=== PATIENT | male | born 1975 | race Asian ===

== ENCOUNTER 2016-07-30 10:11 | Emergency (ER) | payer OTHER ==
[2016-07-30 10:35] VITALS: BP 108/86; PULSE 112; RESP 14; TEMP 100; O2SAT 96
[2016-07-30] MEDS ORDERED: IBUPROFEN 200 MG TAB PO ONE ×2 (10:38→10:40)
--- NOTE | 2016-07-30 10:43 | UCPHY ---
H & P Patient Type: New Chief Complaint Nursing Narrative: sore throat for 3 days Time Seen by Provider: 07/30/16 10:30 HPI/ROS: Chief complaint: Sore throat, fevers, chills HPI: Patient presenting with 3-4 days of sore throat, fevers, chills, some throat clearing. Denies any pain or difficulty swallowing. No headache. No sinus congestion. No body aches. No cough. No shortness of breath. He has been taking DayQuil NyQuil with minimal relief. He states that many people at work have had similar symptoms. Denies past medical history. No medications. No allergies. ROS: 10 point Review of Systems is negative except as noted in the HPI. Physical exam: Gen: Awake, Alert, No Distress HEENT: Ears: Bilateral TMs are normal, no erythema or bulging. External auditory canals are clear. Nose: no rhinorrhea Eyes: PERRLA, EOMI Mouth: Moist mucosa mild pharyngeal erythema, no exudate, no edema, no petechia, Neck: Supple, no JVD, no lymphadenopathy Chest: nontender, lungs clear to auscultation Heart: S1, S2 normal, no murmur Abd: Soft, non-tender, no guarding Back: no CVA tenderness, no midline tenderness Ext: no edema, non-tender Skin: no rash Neuro: CN II-XII intact, Sensation grossly intact, Strength 5/5 in bilateral upper and lower extremities - Personal History Current Tetanus Diphtheria and Acellular Pertussis (TDAP): Yes Tetanus Vaccine Date: unsure - Medical/Surgical History Hx Asthma: No Hx Chronic Respiratory Disease: No Hx Diabetes: No Hx Cardiac Disease: No Hx Renal Disease: No Hx Cirrhosis: No Hx Alcoholism: No Hx HIV/AIDS: No Hx Splenectomy or Spleen Trauma: No Other PMH: denies - Family History Significant Family History: No pertinent family hx - Social History Smoking Status: Never smoked Constitutional: Initial Vital Signs Temperature (C) 37.8 C 07/30/16 10:33 Heart Rate 112 H 07/30/16 10:33 Respiratory Rate 14 07/30/16 10:33 Blood Pressure 108/86 H 07/30/16 10:33 O2 Sat (%) 96 07/30/16 10:33 O2 Delivery Mode Room Air Allergies/Adverse Reactions: No Known Allergies Allergy (Unverified 07/30/16 10:33) Home Medications: Medication Instructions Recorded NK [No Known Home Meds] 07/30/16 Departure - Departure Disposition: Home, Routine, Self-Care Clinical Impression: Viral upper respiratory illness Condition: Good Instructions: Viral Syndrome (ED) Additional Instructions: Alternate acetaminophen, 1000 mg with ibuprofen, 400 mg every 4 hours for aches pains, fevers and chills. Follow up with primary care doctor in 4-5 days if symptoms are not improving. Do not return to work until you been without a fever for 24 hours. Referrals: NONE *PRIMARY CARE P,. [Primary Care Provider] - As per Instructions [facility] [place] [Doctor of Osteopathy] - As per Instructions - PQRS PQRS Measurement: NA
== END 2016-07-30 10:57 | disposition home or self-care (01) ==
LOC: CED 10:11
DX: B34.9 Viral infection, unspecified (principal)
CPT/HCPCS: G0463-PO